=== PATIENT | female | born 1965 | race Caucasian/White ===

== ENCOUNTER → 2018-05-29 | Outpatient (CLI) | payer OTHER ==
[2018-05-29 15:57] VITALS: BP 129/83; PULSE 75; TEMP 96.4; BMI 25.7
--- NOTE | 2018-05-29 17:13 | P.PN ---
Progress Note - Text Progress Note Date: 05/29/18 Chief complaint: heavy period-like bleed beginning on 05/09/2018. HPI: this is a 53 year old to 3 with an LNMP of April 2016. She was seen in September 2017 following a period like bleed after more than 12 months of amenorrhea. Endometrial biopsy was performed on 10/25/2017. A small amount of tissue was obtained and this came back as an active endometrium. The patient was instructed, she had any recurrent bleeding. On 05/09/2018 she had heavy menstrual flow for one and a half days. She had to change protection every hour during the heavy times. The bleeding episode lasted about 5 or 6 days. She states that felt like a very heavy menstrual period. Her is status post vasectomy. She denies hot flashes at this time. She did have lots of hot flashes 1 to 2 years ago which now have resolved. Past medical history is unremarkable. Physical exam: blood pressure 129/83, height 5'4", weight 150 pounds, temperature 96.4, pulse 75. The patient is alert and oriented times 3 in no acute distress. Impression: 1. 53-year-old female with Oligomenorrhea following more than 12 months of amenorrhea. Possible postmenopausal bleeding versus perimenopausal oligomenorrhea. 2. Previous benign endometrial biopsy on 10/25/2017 with small tissue obtained. Plan: 1. We have had a long discussion regarding her bleeding after more than 12 months of amenorrhea. 2. Blood work today will include FSH and estradiol. 3. She will be scheduled for pelvic ultrasound to measure endometrial thickness. 4. Consider referral for possible hysteroscopy and D&C if significantly elevated FSH with recurrent postmenopausal bleeding. 5. If FSH is less than 50, this may indicate some ovarian function. If this is the case and the endometrial thickness is not suspicious appearing, consider trial of cyclic progestin therapy. Total time spent patient 20 minutes.
--- NOTE | 2018-05-30 10:06 | P.PN ---
Progress Note - Text Progress Note Date: 05/30/18 OUTPATIENT FOLLOW-UP NOTE TEST(S)/RESULTS: blood tests from 05/29/2018 include FSH 50.4, Estradiol 26.2 METHOD OF NOTIFICATION: the patient was notified by phone. PATIENT COMMENTS: pelvic ultrasound is scheduled for 06/06/2018. DIAGNOSIS: probable perimenopausal oligomenorrhea DISCUSSION: PLAN: trial of cyclic Provera 10 mg on days 1 to 12 of the month. She'll keep a menstrual calendar. She'll call if she is having problems or follow-up in 4 months. She will call she has 2 months of amenorrhea despite progestin therapy. An electronic prescription will be sent to [facility]. Pelvic ultrasound on 06/06/18.
== END | disposition home or self-care (01) ==
LOC: WWCWWP 15:00
PROVIDERS: ATTEND Obstetrics & Gynecology
DX: N95.0 Postmenopausal bleeding (principal); N91.4 Secondary oligomenorrhea
CPT/HCPCS: 36415; 82670; 83001

== ENCOUNTER → 2018-06-06 | Outpatient (CLI) | payer OTHER ==
--- NOTE | 2018-06-07 08:02 | US ---
EXAMINATION TYPE: US pelvis complete transvag DATE OF EXAM: 06/06/2018 COMPARISON: NONE CLINICAL HISTORY: N95.0 METRORRHAGIA. LMP 05/09/18, with prior menses last fall (1 year ago). 2 prior c-sections TECHNIQUE: Transvaginal (TV) and Transabdominal (TA) . Transabdominal sonographic images of the pel vis were acquired. Transvaginal sonographic images were medically necessary to better assess the fol lowing anatomy: endometrium and ovaries Date of LMP: 05/09/18 EXAM MEASUREMENTS: Uterus: 8.1 x 4.0 x 5.2 cm Endometrial Stripe: 0.5 cm Right Ovary: unable to visualize Left Ovary: unable to visualize 1. Uterus: Anteverted tiny hypoechoic areas noted with largest = 0.4cm 2. Endometrium: appears wnl as visualized 3. Right Ovary: Obscured by overlying bowel gas 4. Left Ovary: Obscured by overlying bowel gas 5. Bilateral Adnexa: wnl 6. Posterior cul-de-sac: wnl IMPRESSION: 1. Suspect small myometrial cysts. No distinct solid lesions seen at this time.
== END | disposition home or self-care (01) ==
LOC: RADUSWWP 15:47
PROVIDERS: ATTEND Obstetrics & Gynecology
DX: N95.0 Postmenopausal bleeding (principal)
CPT/HCPCS: 76830; 76856

== ENCOUNTER → 2018-10-16 | Outpatient (CLI) | payer OTHER ==
[2018-10-16 15:07] VITALS: BP 124/72; PULSE 73; TEMP 98.1; BMI 25.0
--- NOTE | 2018-10-16 16:19 | P.HPOB ---
History of Present Illness H&P Date: 10/16/18 Chief Complaint: The patient is here for her routine gynecologic exam and mammogram. This is a 53-year-old with an LMP of 09/02/2018. The patient had gone about one year without a period and was having vasomotor symptoms and she had vaginal bleeding in September 2017. This was like a heavy period. She underwent an endometrial biopsy on 10/25/2017 and was benign. She was followed conservatively until she had a heavy menstrual period in April of this year. Her FSH was 50 and she was started on cyclic Provera. She had no withdrawal bleed in June, then had light menstrual like bleeding in July and again in August. In September she had no withdrawal bleed after the Provera. She denies any recent hot flashes during the day but has had a few episodes of night sweats. Review of Systems The patient's weight has been stable over the last year. She denies respiratory , cardiac, or G.I. problems. 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 History of Any Multi-Drug Resistant Organisms: None Reported Past Surgical History: Section (x2) Past Psychological History: No Psychological Hx Reported Smoking Status: Never smoker Past Alcohol Use History: Rare (6 per year) Past Drug Use History: None Reported Additional History: She has been since 1982. 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 - Past Family History Father Family Medical History: Myocardial Infarction ([place]) (Age 53) Mother Family Medical History: Cancer (Renal and bladder cancer), Dementia Medications and Allergies Home Medications Medication Instructions Recorded Confirmed Type L.acidoph,Paracasei, B.lactis PO DAILY 05/29/18 History [Probiotic] medroxyPROGESTERone [Provera] 10 mg PO DAILY #36 tablet 05/30/18 10/16/18 Rx Allergies Allergy/AdvReac Type Severity Reaction Status Date / Time No Known Allergies Allergy Unverified 10/16/18 15:07 Exam Vital Signs Temp Pulse BP 10/16/18 15:00 98.1 F 73 124/72 Intake and Output 10/16/18 10/16/18 10/16/18 06:59 14:59 22:59 Other: Weight 66.224 kg Height 5'4", weight 146 pounds, BMI 25.1. This is a well-developed well-nourished white female who is alert and oriented times 3 in no acute distress. HEENT: Within normal limits. NECK: Supple without mass or thyromegaly. CHEST AND LUNGS: Clear to auscultation. HEART: Regular rate and rhythm. BREASTS: Are without mass or discharge. AXILLARY EXAM: Negative for adenopathy. BACK: Negative for CVA tenderness. ABDOMEN: Soft, nontender, without palpable masses. PELVIC EXAM: Normal external genitalia with minimal atrophy. Cervix and vagina appear normal with minimal atrophy. There is no unusual discharge. There is no evidence of prolapse. The uterus is midposition, nongravid size and nontender. There are no palpable adnexal masses or tenderness. RECTAL EXAM: rectovaginal exam is negative for mass or tenderness and is positive for occult blood in one out of 2 specimens. EXTREMITIES: Nontender. IMPRESSION: 1. 53-year-old perimenopausal female doing well on cyclic progestin therapy which was started following an episode of hypermenorrhea that followed oligomenorrhea. She had a benign endometrial biopsy one year ago and a benign pelvic ultrasound on 06/06/2018.. 2. No withdrawal bleed after her last month of progestin therapy. 3. Minimal vasomotor symptoms. 4. Hemoccult positive stool on rectal exam today. PLAN: 1. Pap smear was performed. 2. Self breast awareness was discussed with the patient. 3. Screening mammogram will be done today. 4. She will continue progestin therapy 5 days 8 through 19 of the month. If she has 2 consecutive months without a withdrawal bleed, she will discontinue the cyclic progestin therapy. September will be considered one month without a withdrawal bleed. She will continue to keep a menstrual calendar and call if she is having abnormal bleeding problems or bleeding after 12 months of amenorrhea. The electronic prescription will be sent to [facility] in [place]. 5. Osteoporosis prevention was discussed. I have stressed the importance of adequate calcium, vitamin D and regular exercise. Recommended amounts of calcium and vitamin D were also discussed. 6. I have strongly recommended colonoscopy because of the Hemoccult positive stool and because of her age. I have offered to make a referral for this, but she would like to have this done through her primary caregiver, ANGELA Parks. 6. She will return in one year and PRN.
--- NOTE | 2018-10-18 13:41 | MM ---
Reason for exam: screening (asymptomatic). Last mammogram was performed 1 year ago. History: Taking progesterone for 4 months. Physical Findings: A clinical breast exam by your physician is recommended on an annual basis and results should be correlated with mammographic findings. MG 3D Screening Mammo W/Cad Bilateral CC and MLO view(s) were taken. Prior study comparison: October 10, 2017, bilateral MG 3d screening mammo w/cad. August 30, 2016, bilateral MG 3d screening mammo w/cad. The breast tissue is heterogeneously dense. This may lower the sensitivity of mammography. No significant changes when compared with prior studies. ASSESSMENT: Negative, BI-RAD 1 RECOMMENDATION: Routine screening mammogram of both breasts in 1 year.
== END ==
LOC: WWCWWP 14:49
PROVIDERS: ATTEND Obstetrics & Gynecology
DX: Z12.31 Encounter for screening mammogram for malignant neoplasm of breast (principal)
CPT/HCPCS: 77063; 77067

== ENCOUNTER → 2019-09-10 | Outpatient (CLI) | payer OTHER ==
[2019-09-10 15:39] VITALS: BP 114/73; PULSE 66; RESP 16; TEMP 98.6; BMI 26.6
--- NOTE | 2019-09-10 16:34 | P.PN ---
Progress Note - Text Progress Note Date: 09/10/19 Chief Complaint:Period like bleeding after 12 months of amenorrhea. HPI: This is a 54-year-old 0-3 with a LNMP of August 2018. The patient had previously undergone a endometrial biopsy on 10/25/2017 which was benign. She had been started on cyclic Provera for several months. This was d iscontinued in 2018. She had gone more than one year without any menstrual bleeding and developed menstrual-like bleeding on 08/08/2019. Her is status post vasectomy. ROS: She denies respiratory, cardiac, or GI problems. PE: Blood pressure: 114/73, Height: 5 feet 4 inches, Weight: 155 pounds, Temperature: 98.6, Pulse: 66. Pulse oximeter 100%. This is a well developed, well nourished, white female who is alert and orientedx3, in no acute distress. Abdomen:soft ,nontender without palpable masses. Pelvic exam: Normal external genitalia. Cervix and vagina appear normal. No blood is noted. There is no cervical motion tenderness. Uterus is mid position, nongravid size and nontender. There are no palpable adnexal masses or tenderness. Procedure: The endometrial biopsy procedure was described to the patient. All of her questions were answered. The patient was placed in the lithotomy position. Bimanual examination was performed. The uterus is mid positioned and is nongr avid size. The speculum was inserted and the cervix and vagina were prepped with betadine solution. The anterior lip of the cervix was grasped with an Allis clamp. The 3mm endometrial biopsy curette was placed to the fundus without difficulty. The uterus sounded to 7 cm. A [id number] rotating motion was used and a scant amount of tissue was obtained and sent for pathological examination. The procedure was repeated 1 more time and again scant tissue was obtained. The patient tolerated the procedure well. There were no complications. The post procedure vitals are as follows: blood pressure 139/80. pulse 67, pulse oximeter 98%. Post procedure instructions were given to the patient. Impression: 1. 54-year-old female with menstrual-like postmenopausal bleeding after 12 months of amenorrhea. Differential diagnosis will include perimenopausal bleeding with slight ovarian function, endometrial hyperplasia without atypia, endometrial hyperplasia with atypia, and less likely endometrial cancer. 2. Endometrial biopsy was performed today. Plan: 1. Await endometrial biopsy pathology. If disordered endometrium or normal endometrium without hyperplasia, consider conservative management. If endometrial hyperplasia without atypia, consider cyclic progestin therapy. If endometrial hyperplasia with atypia, consider referral for D&C. If cancer, referral to a gynecologic oncologist. 2. The patient was instructed to call if she has any problems including unusual pain, high fever, heavy bleeding, or problems. Time spent with the patient: 35 minutes
--- NOTE | 2019-09-17 18:04 | P.PN ---
Progress Note - Text Progress Note Date: 09/17/19 OUTPATIENT FOLLOW-UP NOTE TEST(S)/RESULTS: Endometrial biopsy pathology from 09/10/2019 showed benign atrophic endometrium METHOD OF NOTIFICATION: Patient was notified by phone. PATIENT COMMENTS: DIAGNOSIS: Benign endometrial biopsy after menstrual-like bleeding after 12 months of amenorrhea. DISCUSSION: The patient will will keep track of any bleeding that she has over the next few months. She will return in approximately 2 months for her annual examination. She will call she is having heavy bleeding or problems. PLAN: Annual exam in approximately 2-3 months.
== END | disposition home or self-care (01) ==
LOC: WWCWWP 14:58
PROVIDERS: ATTEND Obstetrics & Gynecology
DX: N92.6 Irregular menstruation, unspecified (principal); N91.2 Amenorrhea, unspecified
CPT/HCPCS: 88305

== ENCOUNTER → 2019-11-26 | Outpatient (CLI) | payer OTHER ==
--- NOTE | 2019-11-28 13:45 | MM ---
Reason for exam: screening (asymptomatic). Last mammogram was performed 1 year and 1 month ago. History: Took progesterone for 4 months. Physical Findings: A clinical breast exam by your physician is recommended on an annual basis and results should be correlated with mammographic findings. MG 3D Screening Mammo W/Cad Bilateral CC and MLO view(s) were taken. Prior study comparison: October 16, 2018, bilateral MG 3d screening mammo w/cad. October 10, 2017, bilateral MG 3d screening mammo w/cad. The breast tissue is heterogeneously dense. This may lower the sensitivity of mammography. No significant changes when compared with prior studies. ASSESSMENT: Benign, BI-RAD 2 RECOMMENDATION: Routine screening mammogram of both breasts in 1 year.
== END | disposition home or self-care (01) ==
LOC: RADMAMWWP 15:00
PROVIDERS: ATTEND Obstetrics & Gynecology
DX: Z12.31 Encounter for screening mammogram for malignant neoplasm of breast (principal)
CPT/HCPCS: 77063; 77067

== ENCOUNTER → 2021-05-25 | Outpatient (CLI) | payer OTHER ==
[2021-05-25 15:23] VITALS: BP 112/68; PULSE 83; RESP 18; TEMP 98.2
--- NOTE | 2021-05-25 16:39 | P.HPOB ---
History of Present Illness H&P Date: 05/25/21 Chief Complaint: The patient is here for her routine gynecologic exam and ma mmogram. This is a 56-year-old with an LMP of 2019. The patient is without gynecologic complaints and denies any postmenopausal bleeding. Review of Systems The patient has lost 11 pounds over the last 2 years. She denies respiratory, cardiac, or G.I. problems. 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 History of Any Multi-Drug Resistant Organisms: None Reported Past Surgical History: Section Additional Past Surgical History / Comment(s): section 2. Past Psychological History: No Psychological Hx Reported Smoking Status: Never smoker Past Alcohol Use History: Rare (6 per year) Past Drug Use History: None Reported Additional History: She has been since 1982. 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 - Past Family History Father Family Medical History: Myocardial Infarction ([place]) Mother Family Medical History: Cancer, Dementia Additional Family Medical History / Comment(s): Renal and bladder cancer. Medications and Allergies Home Medications Medication Instructions Recorded Confirmed Type Loratadine [Claritin] 10 mg PO DAILY 05/25/21 05/25/21 History Allergies Allergy/AdvReac Type Severity Reaction Status Date / Time soy AdvReac Nausea Unverified 05/25/21 15:18 Exam Vital Signs Temp Pulse Resp BP Pulse Ox 05/25/21 15:18 98.2 F 83 18 112/68 98 Intake and Output 05/25/21 05/25/21 05/25/21 06:59 14:59 22:59 Other: Weight 65.317 kg Height 5 feet 3-1/2 inches, weight 144 pounds, BMI 25.1. This is a well-developed well-nourished white female who is alert and oriented times 3 in no acute distress. HEENT: Within normal limits. NECK: Supple without mass or thyromegaly. CHEST AND LUNGS: Clear to auscultation. HEART: Regular rate and rhythm. BREASTS: Are without mass or discharge. AXILLARY EXAM: Negative for adenopathy. BACK: Negative for CVA tenderness. ABDOMEN: Soft, nontender, without palpable masses. PELVIC EXAM: Normal external genitalia with mild atrophy. Cervix and vagina appear normal with minimal atrophy. There is no unusual discharge. There is no evidence of prolapse. The uterus is midposition, nongravid size and nontender. There are no palpable adnexal masses or tenderness. RECTAL EXAM: Rectovaginal exam is negative for mass or tenderness and is negative for occult blood. EXTREMITIES: Nontender. IMPRESSION: 1. 56-year-old menopausal female with normal gynecologic exam. PLAN: 1. Pap smear cotest was performed. 2. Self breast awareness was discussed with the patient. 3. Screening mammogram will be done today. 4. Osteoporosis prevention was discussed. I have stressed the importance of adequate calcium, vitamin D and regular exercise. Recommended amounts of calcium and vitamin D were also discussed. 5. I have again recommended that she have a screening colonoscopy done. Fecal occult blood testing is negative at this time, but based on her age, she still should be having a colonoscopy done. She states she will do this through her primary care physician. 6. She has completed her Covid vaccination series. 7. She was advised to return in one year for her annual well woman exam.
--- NOTE | 2021-05-27 09:21 | MM ---
Reason for exam: screening (asymptomatic). Last mammogram was performed 1 year and 6 months ago. History: Patient is postmenopausal. Took progesterone for 4 months. Physical Findings: A clinical breast exam by your physician is recommended on an annual basis and results should be correlated with mammographic findings. MG 3D Screening Mammo W/Cad Bilateral CC and MLO view(s) were taken. Prior study comparison: November 26, 2019, bilateral MG 3d screening mammo w/cad. October 16, 2018, bilateral MG 3d screening mammo w/cad. The breast tissue is heterogeneously dense. This may lower the sensitivity of mammography. ASSESSMENT: Negative, BI-RAD 1 RECOMMENDATION: Routine screening mammogram of both breasts in 1 year.
== END ==
LOC: WWCWWP 14:58
PROVIDERS: ATTEND Obstetrics & Gynecology
DX: Z12.31 Encounter for screening mammogram for malignant neoplasm of breast (principal); Z01.419 Encounter for gynecological examination (general) (routine) without abnormal findings; Z91.018 Allergy to other foods
CPT/HCPCS: 77063; 77067

== ENCOUNTER → 2022-09-27 | Outpatient (CLI) | payer OTHER ==
[2022-09-27 11:29] VITALS: BP 132/72; PULSE 58; RESP 17; TEMP 97.9
--- NOTE | 2022-09-27 12:11 | P.HPOB ---
History of Present Illness H&P Date: 09/27/22 Chief Complaint: The patient is here for her routine gynecologic exam and ma mmogram. This is a 57-year-old with an LMP of 2019. The patient is without gynecologic complaints and denies any postmenopausal bleeding. She had an unsatisfactory Pap smear because of lack of cells on 05/25/2021. High-risk HPV testing at that time was negative. She elected to repeat the Pap smear cytology in one year instead of returning to have it repeated at that time. Review of Systems The patient has lost 13 pounds over the last year. She states she lost weight when she had Covid about 2 months ago. She denies respiratory, cardiac, or G.I. problems. 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 History of Any Multi-Drug Resistant Organisms: None Reported Past Surgical History: Section Additional Past Surgical History / Comment(s): section 2. Past Psychological History: No Psychological Hx Reported Smoking Status: Never smoker Past Alcohol Use History: Rare (12 per year) Past Drug Use History: None Reported Additional History: She has been since 1982. 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 - Past Family History Father Family Medical History: Myocardial Infarction ([place]) Mother Family Medical History: Cancer, Dementia Additional Family Medical History / Comment(s): Renal and bladder cancer. Sister(s) Family Medical History: Cancer Additional Family Medical History / Comment(s): Lymphoma. Medications and Allergies Home Medications Medication Instructions Recorded Confirmed Type Loratadine [Claritin] 10 mg PO DAILY 05/25/21 09/27/22 History Multivitamin [Multivitamins Adult 1 cap PO DAILY 09/27/22 09/27/22 History Gummies] Allergies Allergy/AdvReac Type Severity Reaction Status Date / Time soy AdvReac Nausea Unverified 09/27/22 11:26 Exam Vital Signs Temp Pulse Resp BP Pulse Ox 09/27/22 11:26 97.9 F 58 L 17 132/72 98 Intake and Output 09/26/22 09/27/22 09/27/22 22:59 06:59 14:59 Other: Weight 59.421 kg Height 5 feet 4 inches, weight 131 pounds, BMI 22.5. This is a well-developed well-nourished white female who is alert and oriented times 3 in no acute distress. HEENT: Within normal limits. NECK: Supple without mass or thyromegaly. CHEST AND LUNGS: Clear to auscultation. HEART: Regular rate and rhythm. BREASTS: Are without mass or discharge. AXILLARY EXAM: Negative for adenopathy. BACK: Negative for CVA tenderness. ABDOMEN: Soft, nontender, without palpable masses. PELVIC EXAM: Normal external genitalia with mild atrophy. Cervix and vagina appear normal with minimal atrophy. There is no unusual discharge. There is no evidence of prolapse. The uterus is midposition, nongravid size and nontender. There are no palpable adnexal masses or tenderness. RECTAL EXAM: Rectovaginal exam is negative for mass or tenderness and is negative for occult blood. EXTREMITIES: Nontender. IMPRESSION: 1. 57-year-old menopausal female with normal gynecologic exam. 2. Previous Pap smear on 05/25/2021 was unsatisfactory. High risk HPV testing at that time was not negative. PLAN: 1. Pap smear was performed. High-risk HPV testing will only be done if the Pap smear cytology is abnormal (reflex testing). 2. Self breast awareness was discussed with the patient. We have also discussed symptoms associated with inflammatory breast cancer. 3. Screening mammogram will be done today. 4. Osteoporosis prevention was discussed. I have stressed the importance of adequate calcium, vitamin D and regular exercise. Recommended amounts of calcium and vitamin D were also discussed. 5. I have recommended screening colonoscopy based on her age. We have discussed other alternative methods for colorectal cancer screening including Cologuard testing. She will discuss the options with her PCP. 6. She has completed her Covid vaccination series and has received a booster. She has also had Covid in the past. 7. She was advised to return in one year for her annual well woman exam.
--- NOTE | 2022-09-28 08:12 | MM ---
Reason for Exam: Screening (asymptomatic). Last mammogram was performed 1 year(s) and 4 month(s) ago. Patient History: Menarche at age 11. First Full-Term at age 20. Postmenopausal. Patient has history of breast feeding. Progesterone for 4 months. Risk Values: Massiel 5 year model risk: 1.3%. NCI Lifetime model risk: 7.7%. Prior Study Comparison: 10/16/2018 Bilateral Screening Mammogram, [facility]. 11/26/2019 Bilateral Screening Mammogram, [facility]. 05/25/2021 Bilateral Screening Mammogram, [facility]. Tissue Density: The breast tissue is heterogeneously dense. This may lower the sensitivity of mammography. Findings: Analyzed By CAD. There is no suspicious group of microcalcifications or new suspicious mass in either breast. Overall Assessment: Negative, BI-RAD 1 Management: Screening Mammogram of both breasts in 1 year. A clinical breast exam by your physician is recommended on an annual basis and results should be correlated with mammographic findings. [facility] will attempt to contact patient to return for supplemental views and ultrasound if indicated. Electronically signed and approved by: Camilo Kauffman DO
== END | disposition home or self-care (01) ==
LOC: WWCWWP 11:13
PROVIDERS: ATTEND Obstetrics & Gynecology
DX: Z53.9 Procedure and treatment not carried out, unspecified reason (principal)
CPT/HCPCS: 77063; 77067

== ENCOUNTER → 2023-10-31 | Outpatient (CLI) | payer OTHER ==
[2023-10-31 13:39] VITALS: BP 152/82; PULSE 71; RESP 17; TEMP 97.8
--- NOTE | 2023-10-31 13:53 | P.HPOB ---
History of Present Illness H&P Date: 10/31/23 Chief Complaint: The patient is here for her routine gynecologic exam and ma mmogram. This is a 58-year-old 0-3 with an LMP of 2019. The patient is without gynecologic complaints and denies any postmenopausal bleeding. Review of Systems The patient has gained 19 pounds over the last year. She denies respiratory, cardiac, or G.I. problems. 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 History of Any Multi-Drug Resistant Organisms: None Reported Past Surgical History: Section Additional Past Surgical History / Comment(s): section 2. Past Psychological History: No Psychological Hx Reported Smoking Status: Never smoker Past Alcohol Use History: Rare (6 drinks per year.) Past Drug Use History: None Reported Additional History: She she is a since 2022 and is not seeing anybody at this time. 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 - Past Family History Father Family Medical History: Myocardial Infarction ([place]) Mother Family Medical History: Cancer, Dementia Additional Family Medical History / Comment(s): Renal and bladder cancer. Sister(s) Family Medical History: Cancer Additional Family Medical History / Comment(s): Lymphoma. Medications and Allergies Home Medications Medication Instructions Recorded Confirmed Type Loratadine [Claritin] 10 mg PO DAILY 05/25/21 10/31/23 History Multivitamin [Multivitamins Adult 1 cap PO DAILY 09/27/22 10/31/23 History Gummies] L.acidoph,Paracasei, B.lactis 1 cap PO DAILY 10/31/23 10/31/23 History [Probiotic] Allergies Allergy/AdvReac Type Severity Reaction Status Date / Time soy AdvReac Nausea Unverified 10/31/23 13:16 Exam Vital Signs Temp Pulse Resp BP Pulse Ox 10/31/23 13:24 97.8 F 71 17 152/82 98 Intake and Output 10/30/23 10/31/23 10/31/23 22:59 06:59 14:59 Other: Weight 68.039 kg Height 5 feet 4 inches, weight 150 pounds, BMI 25.7. This is a well-developed well-nourished white female who is alert and oriented times 3 in no acute distress. HEENT: Within normal limits. NECK: Supple without mass or thyromegaly. CHEST AND LUNGS: Clear to auscultation. HEART: Regular rate and rhythm. BREASTS: Are without mass or discharge. AXILLARY EXAM: Negative for adenopathy. BACK: Negative for CVA tenderness. ABDOMEN: Soft, nontender, without palpable masses. PELVIC EXAM: Normal external genitalia with mild atrophy. Cervix and vagina appear normal mild atrophy. There is no unusual discharge. There is no evidence of prolapse. The uterus is midposition, nongravid size and nontender. There are no palpable adnexal masses or tenderness. RECTAL EXAM: Rectovaginal exam is negative for mass or tenderness and is negative for occult blood. There is a small noninflamed hemorrhoid at the rectal opening. EXTREMITIES: Nontender. IMPRESSION: 1. 58-year-old menopausal female with normal gynecologic exam. 2. Elevated blood pressure. PLAN: 1. Pap smear was deferred. She had a negative Pap smear on 09/27/2022 and a negative high-risk HPV testing in 2020. 2. Self breast awareness was discussed with the patient. We have also discussed symptoms associated with inflammatory breast cancer. 3. Screening mammogram will be done today. 4. I have recommended colonoscopy since she has not had this done. She states she will arrange this through her PCP. 5. We have discussed her elevated blood pressure. I have recommended that she check her own blood pressure on a regular basis and follow-up with her PCP for blood pressure elevations. She states she plans to my a blood pressure cuff. 6. She was advised to return in one year for her annual well woman exam.
== END ==
LOC: WWCWWP 13:06
PROVIDERS: ATTEND Obstetrics & Gynecology
DX: Z12.31 Encounter for screening mammogram for malignant neoplasm of breast (principal); R03.0 Elevated blood-pressure reading, without diagnosis of hypertension; Z78.0 Asymptomatic menopausal state; Z91.018 Allergy to other foods
CPT/HCPCS: 77063; 77067

== ENCOUNTER → 2024-12-10 | Outpatient (CLI) | payer BC ==
[2024-12-10 15:17] VITALS: BP 142/85; PULSE 80; RESP 17; TEMP 98.2
--- NOTE | 2024-12-10 16:16 | P.HPOB ---
History of Present Illness H&P Date: 12/10/24 Chief Complaint: The patient is here for her routine gynecologic exam and ma mmogram. This is a 59-year-old -0-2-3 with an LMP of 2019. Patient is without gynecologic complaints. Review of Systems The patient's weight has been stable over the last year. She denies respiratory, cardiac, or G.I. problems. Past Medical History Past Medical History: No Reported History Additional Past Medical History / Comment(s): Mildly elevated LFTs. 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 History of Any Multi-Drug Resistant Organisms: None Reported Past Surgical History: Section Additional Past Surgical History / Comment(s): section 2. Past Psychological History: No Psychological Hx Reported Smoking Status: Never smoker Past Alcohol Use History: Occasional (About 20 drinks per year.) Past Drug Use History: None Reported Additional History: She has been a since 2022 and has not been sexually active since then. 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 - Past Family History Father Family Medical History: Myocardial Infarction ([place]) Mother Family Medical History: Cancer, Dementia Additional Family Medical History / Comment(s): Renal and bladder cancer. Sister(s) Family Medical History: Cancer Additional Family Medical History / Comment(s): Lymphoma. Medications and Allergies Home Medications Medication Instructions Recorded Confirmed Type Multivitamin [Multivitamins Adult 1 cap PO DAILY 09/27/22 12/10/24 History Gummies] Allergies Allergy/AdvReac Type Severity Reaction Status Date / Time soy AdvReac Nausea Unverified 12/10/24 15:12 Exam Vital Signs Temp Pulse Resp BP Pulse Ox 12/10/24 15:13 98.2 F 80 17 142/85 97 Intake and Output 12/10/24 12/10/24 12/10/24 06:59 14:59 22:59 Other: Weight 68.946 kg Height 5 feet 4 inches, weight 152 pounds, BMI 26.1. This is a well-developed well-nourished white female who is alert and oriented times 3 in no acute distress. HEENT: Within normal limits. NECK: Supple without mass or thyromegaly. CHEST AND LUNGS: Clear to auscultation. HEART: Regular rate and rhythm. BREASTS: Are without mass or discharge. AXILLARY EXAM: Negative for adenopathy. BACK: Negative for CVA tenderness. ABDOMEN: Soft, nontender, without palpable masses. PELVIC EXAM: Normal external genitalia with mild atrophy. Cervix and vagina appear normal with mild atrophy. There is no unusual discharge. There is no evidence of prolapse. The uterus is midposition, nongravid size and nontender. There are no palpable adnexal masses or tenderness. RECTAL EXAM: Rectovaginal exam is negative for mass or tenderness and is negative for occult blood. EXTREMITIES: Nontender. IMPRESSION: 1. 59-year-old menopausal female with normal gynecologic exam. 2. Mildly elevated blood pressure. PLAN: 1. Pap smear was deferred since she had a negative Pap smear on 09/27/2022 and negative high-risk HPV test on 05/25/2021. Plan on repeating the Pap smear cotest in 2025. 2. Self breast awareness was discussed with the patient. We have also discussed symptoms associated with inflammatory breast cancer. 3. Screening mammogram will be done today. 4. Osteoporosis prevention was discussed. Will plan on having her get her first bone density test next year. 5. We have discussed her elevated blood pressure. I have recommended that she check her own blood pressure at home on a regular basis. She is to follow-up with her PCP for blood pressure elevations 6. She was advised to return in one year for her annual well woman exam.
--- NOTE | 2024-12-11 08:48 | MM ---
Reason for Exam: Screening (asymptomatic). Last mammogram was performed 1 year(s) and 1 month(s) ago. Patient History: Menarche at age 11. First Full-Term at age 20. Postmenopausal. Patient has history of breast feeding. Progesterone for 4 months. Risk Values: Massiel 5 year model risk: 1.4%. NCI Lifetime model risk: 7.4%. Prior Study Comparison: 05/25/2021 Bilateral Screening Mammogram, [facility]. 09/27/2022 Bilateral MG 3D screening mammo w/cad, [facility]. 10/31/2023 Bilateral MG 3D screening mammo w/cad, [facility]. Tissue Density: The breasts are heterogeneously dense, which may obscure small masses. Findings: Analyzed By CAD. Right breast: There is no suspicious group of microcalcifications or new suspicious mass. Benign-appearing calcifications right breast. Left breast: There is no suspicious group of microcalcifications or new suspicious mass. Benign-appearing calcifications left breast. Overall Assessment: Benign, BI-RAD 2 Management: Screening Mammogram of both breasts in [address] [facility] will attempt to contact patient to return for supplemental views and ultrasound if indicated. Patient should continue monthly self-breast exams. A clinical breast exam by your physician is recommended on an annual basis. This exam should not preclude additional follow-up of suspicious palpable abnormalities. Note on Massiel scores and lifetime risk: 1. A Massiel score greater than 3% is considered moderate risk. If this is the case, consider specialist referral to assess eligibility for a risk reducing agent. 2. If overall lifetime risk for the development of breast cancer is 20% or higher, the patient may qualify for future screening with alternating mammogram and breast MRI. [facility], , 12/11/2024 8:45 AM. Electronically signed and approved by: Camilo Kauffman DO
== END ==
LOC: WWCWWP 14:58
PROVIDERS: ATTEND Obstetrics & Gynecology
DX: N95.9 Unspecified menopausal and perimenopausal disorder (principal); R03.0 Elevated blood-pressure reading, without diagnosis of hypertension; Z12.31 Encounter for screening mammogram for malignant neoplasm of breast; Z91.018 Allergy to other foods
CPT/HCPCS: 77063; 77067